=== PATIENT | male | born 1970 | race Caucasian/White ===

== ENCOUNTER 2022-10-18 08:49 | Outpatient (CLI) | payer OTHER, SELFPAY ==
[2022-10-18 09:59] LABS: Hemoglobin A1C* 5.7 % (0-5.6)
[2022-10-18 12:21] LABS: Albumin* 4.8 g/dL (3.3-5.0); Chloride* 101 mmol/L (96-114); Potassium* 4.5 mmol/L (3.6-5.1); Sodium* 138 mmol/L (135-149)
[2022-10-18 12:23] LABS: Cholesterol* 212 mg/dL (90-199)
[2022-10-18 12:24] LABS: Alanine Aminotransferase* 18 U/L (4-50); Alkaline Phosphatase* 81 U/L (40-150); Aspartate Amino Transferase* 32 U/L (12-35); Bilirubin Total* 0.9 mg/dL (0.1-1.5); Blood Urea Nitrogen* 16 mg/dL (7-30); Carbon Dioxide* 31 mmol/L (20-32); Creatinine* 0.8 mg/dL (0.5-1.5); Estimated Glomerular Filt Rate 108 ml/min; Glucose* 103 mg/dL (60-115); Total Protein* 7.6 g/dL (6.0-8.3); Triglycerides* 146 mg/dL (40-149)
[2022-10-18 12:25] LABS: Calcium* 9.4 mg/dL (8.4-10.6); HDL Cholesterol* 40 mg/dL (>=40); LDL Cholesterol Calculated 143 mg/dL (<100)
[2022-10-18 13:08] LABS: Hepatitis C Virus Antibody* Negative (Negative)
== END 2022-10-18 08:50 | disposition home or self-care (01) ==
PROVIDERS: PCP Family Medicine; Visit Provider Family Medicine
DX: Z00.00 Encounter for general adult medical examination without abnormal findings (principal); E78.5 Hyperlipidemia, unspecified; Z11.59 Encounter for screening for other viral diseases; Z83.3 Family history of diabetes mellitus; Z13.6 Encounter for screening for cardiovascular disorders
CPT/HCPCS: 80053; 80061; 83036; 86803

== ENCOUNTER 2024-01-02 14:12 | Outpatient (CLI) | payer OTHER, SELFPAY | END 2024-01-02 14:13 | disposition home or self-care (01) | PROVIDERS: PCP Family Medicine; Visit Provider Family Medicine | DX: E78.5 Hyperlipidemia, unspecified (principal); R73.03 Prediabetes; Z12.5 Encounter for screening for malignant neoplasm of prostate | CPT/HCPCS: 80053; 80061; G0103 ==

== ENCOUNTER 2025-01-05 08:08 | Outpatient (CLI) | payer OTHER, SELFPAY | END 2025-01-05 08:09 | disposition home or self-care (01) | PROVIDERS: PCP Family Medicine; Visit Provider Family Medicine | DX: Z00.00 Encounter for general adult medical examination without abnormal findings (principal); E78.5 Hyperlipidemia, unspecified; R73.03 Prediabetes | CPT/HCPCS: 80053; 80061; G0103 ==